=== PATIENT | female | born 2000 | race Caucasian/White ===

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

== ENCOUNTER 2019-04-01 08:55 | Emergency (ER) | payer MEDICAID, OTHER ==
[2019-04-01] MEDS ORDERED: KETOROLAC TROMETHAMINE 60 MG/2 ML VIAL ONE ×2 (09:12→09:17)
[2019-04-01] MEDS ORDERED: DIAZEPAM 5 MG TABLET ONE ×2 (09:13→09:18)
[2019-04-01] MEDS ORDERED: LIDOCAINE 5% TOPICAL PATCH TP ONE (09:13)
== END 2019-04-01 10:27 | disposition home or self-care (01) ==
LOC: EDH 08:55
DX: M54.16 Radiculopathy, lumbar region (principal); F41.9 Anxiety disorder, unspecified; E11.9 Type 2 diabetes mellitus without complications
CPT/HCPCS: 96372; 99283; J1885 ×2